=== PATIENT | male | born 1965 | race Asian ===

== ENCOUNTER 2019-08-12 11:13 | Day surgery (SDC) | payer SELFPAY ==
[~2019-08-12] VITALS: Ht 172.7 cm; Wt 63.9 kg
[~2019-08-12 11:13] MED LIST: BACITRACIN 50,000 UNIT ONE; BUPIVACAINE/PF 0.25% ONE; BUPIVACAINE/PF-EPI 0.25% 1:200K ONE; NONE PER PT
[2019-08-12] MEDS ORDERED: ACETAMINOPHEN 500 MG TABLET PO STA (11:52)
[2019-08-12] MEDS ORDERED: GABAPENTIN 300 MG CAPSULE PO STA (11:52)
[2019-08-12 12:08] VITALS: BP 156/107
[2019-08-12] MEDS ORDERED: LIDOCAINE-MPF 2% ,5ML ONE (12:14)
[2019-08-12] MEDS ORDERED: FENTANYL PF 100 MCG/2ML ONE ×2 (12:14→14:07)
[2019-08-12] MEDS ORDERED: ROCURONIUM 10MG/ML,5ML ONE (12:14)
[2019-08-12] MEDS ORDERED: MIDAZOLAM 1 MG/ML, 2ML ONE (12:14)
[2019-08-12] MEDS ORDERED: SUCCINYLCHOLINE 20 MG/ML, 10ML ONE ×2 (12:14→13:44)
[2019-08-12] MEDS ORDERED: PROPOFOL 10 MG/ML, 20ML ONE ×2 (12:14→13:44)
[2019-08-12] MEDS ORDERED: SODIUM CHLORIDE 0.9% PF 10ML ONE ×2 (12:15→13:55)
[2019-08-12] MEDS ORDERED: CEFAZOLIN 1,000 MG ONE ×2 (12:15→13:44)
[2019-08-12] MEDS ORDERED: LACTATED RINGERS 1,000 ML IV SCH (12:44)
[2019-08-12 12:45] LABS: ANION GAP 8 mmol/L (5-15); CHLORIDE 109 mmol/L (98-107); CREATININE 1.04 mg/dL (0.7-1.3)
[2019-08-12] MEDS ORDERED: EPHEDRINE 50 MG/ML, 1ML ONE (13:33)
[2019-08-12] MEDS ORDERED: PHENYLEPHRINE 10 MG/ML ONE (13:33)
[2019-08-12] MEDS ORDERED: DEXAMETHASONE 4 MG/ML, 1ML ONE (13:44)
[2019-08-12] MEDS ORDERED: ONDANSETRON 2MG/ML, 2ML ONE ×2 (13:44→13:46)
[2019-08-12] MEDS ORDERED: KETOROLAC 30 MG/1 ML ONE (13:46)
[2019-08-12] MEDS ORDERED: hydrALAzine 20 MG/ML, 1ML IV PRN (14:30)
[2019-08-12] MEDS ORDERED: FENTANYL PF 100 MCG/2ML IV PRN (14:30)
[2019-08-12] MEDS ORDERED: ONDANSETRON 2MG/ML, 2ML IV PRN (14:30)
[2019-08-12] MEDS ORDERED: OXYcodone 5 MG/5 ML ORAL.SOL UDC PO PRN (14:30)
[2019-08-12] MEDS ORDERED: MEPERIDINE/PF 25MG/ML,1ML IVPush PRN (14:30)
[2019-08-12] MEDS ORDERED: PROMETHAZINE 25 MG/ML, 1ML IV PRN (14:30)
[2019-08-12] MEDS ORDERED: HYDROmorphone 2 MG/ML, 1ML IVPush PRN (14:30)
[2019-08-12] MEDS ORDERED: EPHEDRINE 50 MG/ML, 1ML IVPush PRN (14:30)
[2019-08-12] MEDS ORDERED: LABETALOL 5MG/ML, 20ML IV PRN (14:30)
[2019-08-12] MEDS ORDERED: HYDROcodone/APAP 5/325 TABLET PO PRN (16:30)
[2019-08-12] MEDS ORDERED: DIPHENHYDRAMINE 50 MG/ML, 1ML IVPush PRN (16:30)
[2019-08-12] MEDS ORDERED: KETOROLAC 30 MG/1 ML IV PRN (16:30)
[2019-08-12] MEDS ORDERED: ONDANSETRON 2MG/ML, 2ML IVPush PRN (16:30)
[2019-08-12] MEDS ORDERED: MORPHINE SULFATE 4 MG/ML, 1ML IVPush PRN (16:30)
== END 2019-08-12 17:34 | disposition home or self-care (01) ==
LOC: OUT 11:13 → 4NE 15:50 → OUT 17:34
PROVIDERS: ATTEND Surgery
DX: K40.20 Bilateral inguinal hernia, without obstruction or gangrene, not specified as recurrent (principal)
CPT/HCPCS: 36415; 49505; 80048; 93005; C1781; J0330; J0690; J1100; J1885; J2250; J2370; J2405; J2704; J3010; G0378; J3490

== ENCOUNTER 2020-03-21 11:12 | Emergency (ER) | payer SELFPAY ==
[~2020-03-21] VITALS: Ht 172.7 cm; Wt 61.5 kg
[~2020-03-21 11:12] MED LIST changes: -BACITRACIN 50,000 UNIT ONE; -BUPIVACAINE/PF 0.25% ONE; -BUPIVACAINE/PF-EPI 0.25% 1:200K ONE
[2020-03-21 11:14] VITALS: BP 131/101
[2020-03-21] MEDS ORDERED: MAALOX/HYOSCYAMINE/LIDOCAINE 45 ML BTL PO ONE (12:00)
[2020-03-21] MEDS ORDERED: MAALOX/HYOSCYAMINE/LIDOCAINE 45 ML BTL ONE (12:00)
[2020-03-21] MEDS ORDERED: FAMOTIDINE 20 MG TABLET PO ONE (12:00)
[2020-03-21] MEDS ORDERED: FAMOTIDINE 20 MG TABLET ONE (12:02)
[2020-03-21 12:11] LABS: BASOPHILS # (AUTO) 0.03 x10^3/uL (0-0.1); BASOPHILS % (AUTO) 1 % (0-1); EOSINOPHILS # (AUTO) 0.04 x10^3/uL (0-0.4); EOSINOPHILS % (AUTO) 1 % (1-7); LYMPHOCYTES # (AUTO) 0.97 x10^3/uL (1-3.4); LYMPHOCYTES % (AUTO) 16 % (22-44); MD NO; MEAN CORPUSCULAR HEMOGLOBIN 31.2 pg (27.5-34.5); MEAN CORPUSCULAR HGB CONC 33.5 g/dL (33.2-36.2); MEAN CORPUSCULAR VOLUME 93.3 fL (81-97); MEAN PLATELET VOLUME 8.4 fL (7.4-10.4); MONOCYTES # (AUTO) 0.55 x10^3/uL (0.2-0.8); MONOCYTES % (AUTO) 9 % (2-9); NEUTROPHILS # (AUTO) 4.39 x10^3/uL (1.8-6.8); NEUTROPHILS % (AUTO) 73 % (42-75); PLATELET COUNT 187 x10^3/uL (130-400); RED BLOOD COUNT 5.29 x10^6/uL (4.38-5.82); RED CELL DISTRIBUTION WIDTH 13.3 % (9.4-14.8)
[2020-03-21 12:18] LABS: ALANINE AMINOTRANSFERASE 73 U/L (12-78); ALBUMIN 3.8 g/dL (3.4-5.0); ANION GAP 6 mmol/L (5-15); CALCIUM 8.8 mg/dL (8.5-10.1); CHLORIDE 110 mmol/L (98-107); CREATININE 1.11 mg/dL (0.7-1.3)
[2020-03-21 12:21] LABS: ALKALINE PHOSPHATASE 76 U/L (45-117); BILIRUBIN,TOTAL 0.8 mg/dL (0.2-1.0); TOTAL PROTEIN 7.2 g/dL (6.4-8.2)
[2020-03-21 12:32] LABS: MICROSCOPIC NOT IND
--- NOTE | 2020-03-21 12:34 | NUR ---
this tech took vitals and performed EKG on pt
--- NOTE | 2020-03-21 12:46 | NUR ---
MEDICATED PER ORDERS, [facility] SENT. PT ON CHRISTMAS TREE GRADER. VSS
[2020-03-21 13:59] LABS: TROPONIN I < 0.015 ng/mL (0.000-0.045)
== END 2020-03-21 14:56 ==
LOC: ED 14:45
DX: K29.20 Alcoholic gastritis without bleeding (principal); F10.10 Alcohol abuse, uncomplicated; R10.13 Epigastric pain; I25.2 Old myocardial infarction; R10.33 Periumbilical pain; Y90.0 Blood alcohol level of less than 20 mg/100 ml
CPT/HCPCS: 36415; 80053; 81003; 83690; 84484; 85025; 93005; 99284

== ENCOUNTER 2020-08-24 14:39 | Emergency (ER) | payer OTHER ==
[~2020-08-24] VITALS: Ht 175.3 cm; Wt 62.1 kg
--- NOTE | 2020-08-24 14:56 | NUR ---
C/O RIGHT UPPER CHEST AND ARM PAIN X3 WEEKS.
[2020-08-24] MEDS ORDERED: KETOROLAC 30 MG/1 ML ONE (15:22)
[2020-08-24] MEDS ORDERED: KETOROLAC 30 MG/1 ML IM ONE (15:30)
[2020-08-24 15:36] LABS: BASOPHILS % (AUTO) 1 % (0-1); EOSINOPHILS % (AUTO) 2 % (1-7); LYMPHOCYTES % (AUTO) 24 % (22-44); MEAN CORPUSCULAR HEMOGLOBIN 31.5 pg (27.5-34.5); MEAN CORPUSCULAR HGB CONC 34.4 g/dL (33.2-36.2); MEAN PLATELET VOLUME 7.7 fL (7.4-10.4); MONOCYTES % (AUTO) 8 % (2-9); NEUTROPHILS % (AUTO) 65 % (42-75); PLATELET COUNT 199 x10^3/uL (130-400); RED BLOOD COUNT 5.31 x10^6/uL (4.38-5.82); RED CELL DISTRIBUTION WIDTH 12.4 % (9.4-14.8)
[2020-08-24 15:41] LABS: ALBUMIN 3.8 g/dL (3.4-5.0); ANION GAP 6 mmol/L (5-15); CALCIUM 8.9 mg/dL (8.5-10.1); CHLORIDE 108 mmol/L (98-107); CREATININE 1.27 mg/dL (0.7-1.3)
[2020-08-24 15:45] LABS: TROPONIN I < 0.015 ng/mL (0.000-0.045)
[2020-08-24 15:46] LABS: MD NO
[2020-08-24 16:18] VITALS: BP 130/86
== END 2020-08-24 16:32 | disposition home or self-care (01) ==
LOC: ED 16:20
DX: S46.812A Strain of other muscles, fascia and tendons at shoulder and upper arm level, left arm, initial encounter (principal); R07.9 Chest pain, unspecified; R00.0 Tachycardia, unspecified; X58.XXXA Exposure to other specified factors, initial encounter; Y93.89 Activity, other specified; Y92.89 Other specified places as the place of occurrence of the external cause; Y99.8 Other external cause status
CPT/HCPCS: 36415; 71045; 73030; 80048; 82040; 83880; 84484; 85025; 96372; 99284; J1885

== ENCOUNTER 2020-08-25 04:33 | Emergency (ER) | payer SELFPAY ==
[~2020-08-25] VITALS: Ht 177.8 cm; Wt 62.9 kg
--- NOTE | 2020-08-25 05:08 | NUR ---
PT WAS SEEN HERE YESTERDAY FOR CHEST PAIN. PAIN HAS CHANGED AND IS NOW MORE ABD PAIN AND PT HAS HAD SOME CONSTIPATION. PT IS ALSO FEELING ANXIETY WITH THIS PAIN AND HAS BEEN UNABLE TO SLEEP. PT PLACED ON MONITORS AND FRIEND AY BEDSIDE
[2020-08-25] MEDS ORDERED: ONDANSETRON 2MG/ML, 2ML IVPush ONE (06:00)
[2020-08-25] MEDS ORDERED: SODIUM CHLORIDE FLUSH 10ML SYR IVF ONE (06:00)
[2020-08-25] MEDS ORDERED: KETOROLAC 30 MG/1 ML IVPush ONE (06:00)
[2020-08-25] MEDS ORDERED: KETOROLAC 30 MG/1 ML ONE (06:02)
[2020-08-25] MEDS ORDERED: ONDANSETRON 2MG/ML, 2ML ONE (06:02)
--- NOTE | 2020-08-25 06:15 | NUR ---
PT MEDICATED. VSS. PT HAS NO NEEDS AT THIS TIME. CALL LIGHT IN REACH
[2020-08-25 06:16] LABS: BASOPHILS % (AUTO) 1 % (0-1); EOSINOPHILS % (AUTO) 1 % (1-7); LYMPHOCYTES % (AUTO) 14 % (22-44); MEAN CORPUSCULAR HEMOGLOBIN 31.8 pg (27.5-34.5); MEAN CORPUSCULAR HGB CONC 34.6 g/dL (33.2-36.2); MEAN PLATELET VOLUME 7.8 fL (7.4-10.4); MONOCYTES % (AUTO) 9 % (2-9); NEUTROPHILS % (AUTO) 75 % (42-75); PLATELET COUNT 189 x10^3/uL (130-400); RED BLOOD COUNT 5.25 x10^6/uL (4.38-5.82); RED CELL DISTRIBUTION WIDTH 12.4 % (9.4-14.8)
[2020-08-25 06:21] LABS: MD NO
[2020-08-25 06:32] LABS: ALANINE AMINOTRANSFERASE 70 U/L (12-78); ALBUMIN 3.9 g/dL (3.4-5.0); ANION GAP 5 mmol/L (5-15); CALCIUM 9.4 mg/dL (8.5-10.1); CHLORIDE 109 mmol/L (98-107)
[2020-08-25 06:36] LABS: ALKALINE PHOSPHATASE 78 U/L (45-117); BILIRUBIN,TOTAL 0.7 mg/dL (0.2-1.0); TOTAL PROTEIN 7.3 g/dL (6.4-8.2); TROPONIN I < 0.015 ng/mL (0.000-0.045)
--- NOTE | 2020-08-25 06:54 | NUR ---
REPORT TO TITO MARIE
--- NOTE | 2020-08-25 07:02 | NUR ---
Report from FRANK Salazar. at bedside, using interpretur services. Pt's questions answered. MD aware of pt's VS.
[2020-08-25] MEDS ORDERED: LORazepam 2 MG/ML, 1ML ONE (07:06)
[2020-08-25] MEDS ORDERED: LORazepam 2 MG/ML, 1ML IVPush ONE (07:30)
[2020-08-25] MEDS ORDERED: SODIUM CHLORIDE 0.9% 1,000ML IVBOLUS ONE (07:30)
--- NOTE | 2020-08-25 07:51 | NUR ---
Pt states he feels better. HR noted to be 86 when sleeping after fluids.
[2020-08-25] MEDS ORDERED: THIAMINE 100MG TABLET PO ONE (08:00)
[2020-08-25 09:16] VITALS: BP 142/98
== END 2020-08-25 09:20 | disposition other institution (70) ==
LOC: ED 06:32
DX: M25.511 Pain in right shoulder (principal); R07.89 Other chest pain; F10.10 Alcohol abuse, uncomplicated; Y90.0 Blood alcohol level of less than 20 mg/100 ml
CPT/HCPCS: 36415; 80053; 84484; 85025; 85379; 93005; 96361; 96374; 96375; 99285; J1885; J2060; J2405; J7030

== ENCOUNTER 2020-08-28 04:46 | Emergency (ER) | payer SELFPAY ==
[~2020-08-28] VITALS: Ht 172.7 cm; Wt 61.0 kg
--- NOTE | 2020-08-28 05:15 | NUR ---
PT CAME INTO ED THIS AM DUE TO ONE EMESIS EPISODE AFTER EATING DUE TO "GAS AND ACID IN STOMACH" AND SOME SLIGHT FADED BLOOD IN EMESIS EPISODE. PT REPORTS THIS HAS HAPPENED PREVIOUSLY AND HE WAS SEEN HERE FOR TREATMENT, REPORTS BURNING SENSATION IN EPIGASTRIC REGION, AND SOME CHEST DISCOMFORT. FELT STRIP FINISHER SERVICES USED, [employer] FOR ASSESSMENT. REPORTS ONLY DAILY MEDICATION IS "THE ONE I WAS PRESCRIBED HERE LAST TIME" VAZQUEZ MELENDREZ AT BS FOR EVAL AND POC. PT PLACED ON SPO2/BP/ECG MONITORING. PROVIDED WARM BLANKETS FOR COMFORT, BED IN LOWEST, CALL LIGHT ON LAP, RAILS IN PLACE, WCTM.
[2020-08-28 05:30] LABS: BASOPHILS % (AUTO) 1 % (0-1); EOSINOPHILS % (AUTO) 2 % (1-7); LYMPHOCYTES % (AUTO) 12 % (22-44); MEAN CORPUSCULAR HEMOGLOBIN 31.9 pg (27.5-34.5); MEAN CORPUSCULAR HGB CONC 34.9 g/dL (33.2-36.2); MEAN PLATELET VOLUME 7.7 fL (7.4-10.4); MONOCYTES % (AUTO) 10 % (2-9); NEUTROPHILS % (AUTO) 75 % (42-75); PLATELET COUNT 196 x10^3/uL (130-400); RED BLOOD COUNT 5.31 x10^6/uL (4.38-5.82); RED CELL DISTRIBUTION WIDTH 12.5 % (9.4-14.8)
[2020-08-28] MEDS ORDERED: SODIUM CHLORIDE FLUSH 10ML SYR IVF ONE (05:30)
[2020-08-28] MEDS ORDERED: SODIUM CHLORIDE 0.9% 1,000ML IVBOLUS ONE (05:30)
[2020-08-28] MEDS ORDERED: PANTOPRAZOLE 40 MG IV IVPush ONE (05:30)
[2020-08-28] MEDS ORDERED: ONDANSETRON 2MG/ML, 2ML IVPush ONE (05:30)
[2020-08-28] MEDS ORDERED: FAMOTIDINE 20 MG/2 ML IVPush ONE (05:30)
[2020-08-28 05:31] LABS: MD NO
[2020-08-28 05:41] LABS: ALANINE AMINOTRANSFERASE 81 U/L (12-78); ALBUMIN 4.3 g/dL (3.4-5.0); ANION GAP 4 mmol/L (5-15); CALCIUM 9.1 mg/dL (8.5-10.1); CHLORIDE 106 mmol/L (98-107); CREATININE 1.17 mg/dL (0.7-1.3)
[2020-08-28 05:46] LABS: ALKALINE PHOSPHATASE 83 U/L (45-117); BILIRUBIN,TOTAL 0.6 mg/dL (0.2-1.0); TOTAL PROTEIN 7.5 g/dL (6.4-8.2); TROPONIN I < 0.015 ng/mL (0.000-0.045)
--- NOTE | 2020-08-28 06:25 | NUR ---
pt resting on gurney, nad, appears comfortable, wctm.
--- NOTE | 2020-08-28 06:48 | NUR ---
report from jaime, patient in bed.
--- NOTE | 2020-08-28 06:58 | NUR ---
BEDSIDE REPORT TO ADIS RN, PT CARE TRANSFERRED AT THIS TIME. PT NOW REPORTS FOOD FEELS LIKE IT IS STUCK IN HIS ESOPHAGUS WHEN HE EATS, ERP AWARE.
--- NOTE | 2020-08-28 07:28 | NUR ---
patient to radiology for esophogram
--- NOTE | 2020-08-28 07:43 | NUR ---
[facility]
[2020-08-28 08:47] VITALS: BP 148/108
--- NOTE | 2020-08-28 09:36 | NUR ---
took time but got [facility] wrapper sizer on phone and explained discharge and medications at length. shows understanding.
== END 2020-08-28 09:38 | disposition home or self-care (01) ==
LOC: ED 08:58
DX: K29.21 Alcoholic gastritis with bleeding (principal); R11.2 Nausea with vomiting, unspecified; I10 Essential (primary) hypertension; R10.13 Epigastric pain
CPT/HCPCS: 36415; 74021; 74220; 80053; 80320; 83690; 84484; 85025; 93005; 96361; 96374; 96375; 99285; C9113; J2405; J7030; G0480

== ENCOUNTER 2020-10-17 12:13 | Emergency (ER) | payer OTHER ==
[~2020-10-17] VITALS: Ht 170.2 cm; Wt 63.0 kg
--- NOTE | 2020-10-17 12:27 | NUR ---
TASK RN: PT USING FRIEND SPINNER OPERATOR AND BOTH PARTIES STATE THEY ARE OKAY WITH THAT AND DO NOT WANT A SPINNER OPERATOR. PT DRINKS DAILY, LAST DRINK 0730 YESTERDAY MORNING. STATES HIS STOMACH FEELS BLOATED AND THAT HE HAS RIGHT CP THAT RADIATES TO THE BACK, INTERMITTENT IN NATURE AND OCCASIONAL SOB. PT ON MONITOR, IV ESTABLISHED WITH BLOOD DRAWN AND AWAITING MD MAN
--- NOTE | 2020-10-17 12:58 | NUR ---
Report received from meal break RN and care assumed.
[2020-10-17] MEDS ORDERED: LORazepam 2 MG/ML, 1ML IVPush ONE ×2 (13:00→13:30)
[2020-10-17] MEDS ORDERED: SODIUM CHLORIDE 0.9% 1,000ML IVBOLUS ONE ×2 (13:00→13:30)
[2020-10-17] MEDS ORDERED: SODIUM CHLORIDE FLUSH 10ML SYR IVF ONE (13:00)
[2020-10-17] MEDS ORDERED: LORazepam 2 MG/ML, 1ML ONE ×2 (13:14→14:38)
[2020-10-17 13:17] LABS: BASOPHILS % (AUTO) 1 % (0-1); EOSINOPHILS % (AUTO) 1 % (1-7); LYMPHOCYTES % (AUTO) 15 % (22-44); MEAN CORPUSCULAR HGB CONC 34.7 g/dL (33.2-36.2); MEAN PLATELET VOLUME 7.7 fL (7.4-10.4); MONOCYTES % (AUTO) 9 % (2-9); NEUTROPHILS % (AUTO) 75 % (42-75); PLATELET COUNT 195 x10^3/uL (130-400); RED BLOOD COUNT 5.14 x10^6/uL (4.38-5.82); RED CELL DISTRIBUTION WIDTH 14.8 % (9.4-14.8)
[2020-10-17 13:18] LABS: MD NO
--- NOTE | 2020-10-17 13:21 | NUR ---
IVF started at wide open rate and running easily. Ativan IVP given as ordered. VS remain with HTN and tachycardia noted.
[2020-10-17 13:26] LABS: ALANINE AMINOTRANSFERASE 166 U/L (12-78); ANION GAP 9 mmol/L (5-15); CHLORIDE 108 mmol/L (98-107); CREATININE 1.01 mg/dL (0.7-1.3)
[2020-10-17] MEDS ORDERED: MAGNESIUM SULFATE PMX 2GM/50ML 50 ML IV ONE (13:30)
[2020-10-17] MEDS ORDERED: THIAMINE 100MG TABLET PO ONE (13:30)
[2020-10-17] MEDS ORDERED: FOLIC ACID 1 MG TABLET PO ONE (13:30)
[2020-10-17 13:31] LABS: ALKALINE PHOSPHATASE 76 U/L (45-117); TOTAL PROTEIN 7.5 g/dL (6.4-8.2); TROPONIN I < 0.015 ng/mL (0.000-0.045)
--- NOTE | 2020-10-17 13:36 | NUR ---
noted IVF change to 1000mL instead of 500mL. Will confirm total requested dose with MD.
[2020-10-17] MEDS ORDERED: MAGNESIUM SULFATE PMX 2GM/50ML 50 ML ONE (13:51)
[2020-10-17] MEDS ORDERED: THIAMINE 100MG TABLET ONE (13:51)
[2020-10-17] MEDS ORDERED: CHLORDIAZEPOXIDE 25 MG CAPSULE ONE (14:00)
[2020-10-17] MEDS ORDERED: CHLORDIAZEPOXIDE 25 MG CAPSULE PO ONE (14:00)
--- NOTE | 2020-10-17 14:10 | NUR ---
Total of 1500mL confirmed with MD and second liter bag started with other meds as ordered. Awaiting Folic Acid from pharmacy as it it not carried in [facility] in this dept. Pt aware. Noted continued HTN and no other symptoms of ETOH withdrawal noted. Lab results and XR results reviewed with pt and decoration checker in general overview only.
[2020-10-17] MEDS ORDERED: MAALOX/HYOSCYAMINE/LIDOCAINE 45 ML BTL ONE (14:37)
--- NOTE | 2020-10-17 14:43 | NUR ---
MD states he would like pt to have the second dose of Ativan 1mg IV now. Medication given as directed by MD. Pt also provided GI cocktail at this time and he has held down all other PO meds to this point. HR and BP slowly trending downwards since fluids and medications started. Pt and mobile qa tester updated to plan of care.
[2020-10-17] MEDS ORDERED: MAALOX/HYOSCYAMINE/LIDOCAINE 45 ML BTL PO ONE (15:00)
[2020-10-17 16:16] VITALS: BP 148/101
== END 2020-10-17 16:20 | disposition home or self-care (01) ==
LOC: ED 12:51
DX: K29.20 Alcoholic gastritis without bleeding (principal); F10.139 Alcohol abuse with withdrawal, unspecified; R00.0 Tachycardia, unspecified; Y90.9 Presence of alcohol in blood, level not specified
CPT/HCPCS: 36415; 71045; 80053; 83690; 83735; 84484; 85025; 85379; 93005; 96361; 96365; 96375; 96376; 99285; J2060; J3475; J7030

== ENCOUNTER 2020-12-29 13:08 | Emergency (ER) | payer SELFPAY ==
[~2020-12-29] VITALS: Ht 170.2 cm; Wt 63.0 kg
--- NOTE | 2020-12-29 13:29 | NUR ---
used [facility] bicycle racer in [place]
--- NOTE | 2020-12-29 13:42 | NUR ---
Pt speaks karl with use of senior sales operations analyst."I stopped drinking when I moved here (unsure of when that was) then last night I drank and I got a BURCH, my legs started hurting, and my BP got high. " PT IN BED POSTIONED TO COMFORT, ATTACHED TO MONITORS, PT ST ON MONITOR 120'S, OTHER VSS. NADN. DR. SILVERIO AT BEDSIDE WITH [employer] MONITOR MOVIE PROJECTIONIST. PT STATING HE IS HAVING SOME TROUBLE BREATHING.
[2020-12-29] MEDS ORDERED: LORazepam 1MG TABLET PO ONE (14:00)
[2020-12-29] MEDS ORDERED: ONDANSETRON ODT 4 MG PO ONE (14:00)
[2020-12-29] MEDS ORDERED: ONDANSETRON ODT 4 MG ONE (14:01)
[2020-12-29] MEDS ORDERED: LORazepam 1MG TABLET ONE (14:01)
[2020-12-29 14:09] LABS: BASOPHILS % (AUTO) 0 % (0-1); EOSINOPHILS % (AUTO) 0 % (1-7); LYMPHOCYTES % (AUTO) 11 % (22-44); MEAN CORPUSCULAR HEMOGLOBIN 31.2 pg (27.5-34.5); MEAN CORPUSCULAR HGB CONC 34.1 g/dL (33.2-36.2); MEAN PLATELET VOLUME 7.8 fL (7.4-10.4); MONOCYTES % (AUTO) 3 % (2-9); NEUTROPHILS % (AUTO) 86 % (42-75); PLATELET COUNT 213 x10^3/uL (130-400); RED BLOOD COUNT 5.65 x10^6/uL (4.38-5.82); RED CELL DISTRIBUTION WIDTH 13.6 % (9.4-14.8)
[2020-12-29 14:11] LABS: MD NO
[2020-12-29 14:21] LABS: ALANINE AMINOTRANSFERASE 86 U/L (12-78); ALBUMIN 3.7 g/dL (3.4-5.0); ANION GAP 11 mmol/L (5-15); CALCIUM 8.7 mg/dL (8.5-10.1); CHLORIDE 105 mmol/L (98-107)
[2020-12-29 14:24] LABS: ALKALINE PHOSPHATASE 93 U/L (45-117); BILIRUBIN,TOTAL 0.8 mg/dL (0.2-1.0); CREATININE 1.19 mg/dL (0.7-1.3); TOTAL PROTEIN 7.5 g/dL (6.4-8.2)
--- NOTE | 2020-12-29 14:40 | NUR ---
PT MEDICATED PER EMAR. PT EDUCATED ON MEDICATION USING CUFF RUNNER. PT NOW ASLEEP WITH EVEN AND UNLABORED RESPIRATIONS. VSS.
--- NOTE | 2020-12-29 14:52 | NUR ---
PT ASLEEP WITH EVEN AND UNLABORED RESPIRATIONS. THALIA. JEET.
[2020-12-29 15:29] VITALS: BP 107/62
--- NOTE | 2020-12-29 15:31 | NUR ---
Patient given discharge instructions and they have confirmed that they understand the instructions after use of consumer loan underwriter to discuss instructions. Patient ambulatory with steady gait.
== END 2020-12-29 15:38 | disposition home or self-care (01) ==
LOC: ED 15:37
DX: J69.0 Pneumonitis due to inhalation of food and vomit (principal); F10.229 Alcohol dependence with intoxication, unspecified; F41.1 Generalized anxiety disorder; R51.9 Headache, unspecified; R00.0 Tachycardia, unspecified; Y90.0 Blood alcohol level of less than 20 mg/100 ml
CPT/HCPCS: 36415; 71045; 80053; 80320; 83690; 85025; 93005; 99285; Q0162; G0480

== ENCOUNTER 2021-02-22 13:03 | Emergency (ER) | payer SELFPAY ==
[~2021-02-22] VITALS: Ht 170.2 cm; Wt 60.0 kg
[2021-02-22] MEDS ORDERED: SODIUM CHLORIDE FLUSH 10ML SYR IVF ONE (13:30)
[2021-02-22] MEDS ORDERED: SODIUM CHLORIDE 0.9% 1,000ML IVBOLUS ONE (13:30)
[2021-02-22] MEDS ORDERED: THIAMINE 100MG TABLET PO ONE (13:30)
[2021-02-22] MEDS ORDERED: ONDANSETRON ODT 4 MG PO ONE (13:30)
[2021-02-22 15:11] LABS: BASOPHILS % (AUTO) 1 % (0-1); EOSINOPHILS % (AUTO) 0 % (1-7); LYMPHOCYTES % (AUTO) 15 % (22-44); MEAN PLATELET VOLUME 7.7 fL (7.4-10.4); MONOCYTES % (AUTO) 11 % (2-9); NEUTROPHILS % (AUTO) 74 % (42-75); PLATELET COUNT 212 x10^3/uL (130-400); RED BLOOD COUNT 5.99 x10^6/uL (4.38-5.82); RED CELL DISTRIBUTION WIDTH 14.6 % (9.4-14.8)
[2021-02-22 15:23] LABS: ALANINE AMINOTRANSFERASE 167 U/L (12-78); ALBUMIN 4.2 g/dL (3.4-5.0); ANION GAP 7 mmol/L (5-15); CALCIUM 9.4 mg/dL (8.5-10.1); CHLORIDE 103 mmol/L (98-107)
[2021-02-22 15:25] LABS: ALKALINE PHOSPHATASE 90 U/L (45-117); BILIRUBIN,TOTAL 1.4 mg/dL (0.2-1.0); TOTAL PROTEIN 8.3 g/dL (6.4-8.2)
--- NOTE | 2021-02-22 16:41 | NUR ---
FROZEN FOODS MANAGER: CALLED FOR ROOM, NO ANSWER
--- NOTE | 2021-02-22 16:53 | NUR ---
LEAD MECHANIC: PT TO ROOM FROM LOBBY
[2021-02-22] MEDS ORDERED: ONDANSETRON ODT 4 MG ONE ×2 (17:12→17:52)
[2021-02-22] MEDS ORDERED: THIAMINE 100MG TABLET ONE ×2 (17:15→17:51)
[2021-02-22] MEDS ORDERED: CHLORDIAZEPOXIDE 25 MG CAPSULE PO ONE (18:00)
[2021-02-22] MEDS ORDERED: CHLORDIAZEPOXIDE 25 MG CAPSULE ONE (18:19)
--- NOTE | 2021-02-22 18:40 | NUR ---
PT RESTING IN GURNEY, NO S/S OF DISTRESS. STATES HE FEELS BETTER AFTER IVF. MEDICATED WITH [facility] PER ORDERS AND POC RV'WD WITH PT USING [employer] AUDIO LEARNING AND DEVELOPMENT MANAGER. PT STATES HE WANTS RX AND WANTS TO GO HOME.
[2021-02-22 20:28] VITALS: BP 140/94
--- NOTE | 2021-02-22 20:29 | NUR ---
D/C INSTRUCTIONS, MEDS & F/U APPT RV'WD WITH PT USING [employer] AUDIO 2ND GRADE TEACHER. RESOURCES FOR DETOX PROVIDED TO PT. ALL QUESTIONS ANSWERED. [facility] RX SENT TO [facility], PT VERBALIZES UNDERSTANDING. PT AMBULATED OUT OF ED WITHOUT DIFFICULTY, STATES HIS FAMILY IS WAITING OUTSIDE FOR HIM.
== END 2021-02-22 20:31 | disposition home or self-care (01) ==
LOC: ED 20:00
DX: F10.139 Alcohol abuse with withdrawal, unspecified (principal); R45.4 Irritability and anger; R06.02 Shortness of breath; R63.0 Anorexia; R00.0 Tachycardia, unspecified; I10 Essential (primary) hypertension; Z68.20 Body mass index [BMI] 20.0-20.9, adult; Y90.0 Blood alcohol level of less than 20 mg/100 ml
CPT/HCPCS: 36415; 71045; 80053; 80320; 83690; 85025; 93005; 96360; 99285; J7030; Q0162; G0480